=== PATIENT | female | born 1995 | race Caucasian/White ===

== ENCOUNTER 2018-12-18 00:56 | Observation (INO) | payer MEDICAID ==
[~2018-12-18] VITALS: Ht 157.5 cm; Wt 82.6 kg
[2018-12-18] MEDS ORDERED: DEXT 5%/LACTATED RINGERS 1,000 ML IV SCH (01:30)
[2018-12-18] MEDS ORDERED: BUTORPHANOL TARTRATE 2 MG/ML VIAL IV PRN (03:45)
[2018-12-18 03:53] VITALS: BP 104/59
== END 2018-12-18 07:25 | disposition home or self-care (01) ==
LOC: 8 EST LDRP 00:56
PROVIDERS: ADMIT Obstetrics & Gynecology; ATTEND Obstetrics & Gynecology
DX: O62.9 Abnormality of forces of labor, unspecified (principal); Z3A.38 38 weeks gestation of pregnancy
CPT/HCPCS: 76815; 76818; 96374; 99281; G0378; J0595; 96360; 96361; J7121

== ENCOUNTER 2018-12-18 15:33 | Inpatient (IN) | payer MEDICAID ==
[~2018-12-18] VITALS: Ht 157.5 cm; Wt 82.6 kg
[~2018-12-18 15:33] MED LIST: LIDOCAINE HCL 2%/EPINEPHRINE 1:100,000 20 ML VIAL INFIL ONE
[2018-12-18] MEDS ORDERED: DEXT 5%/LR + PITOCIN 20UNITS/L 1,000 ML IV SCH ×2 (15:55→23:06)
[2018-12-18] MEDS ORDERED: LIDOCAINE HCL 1% 20ML VIAL (Pyxis) INJ INFIL SCH (16:00)
[2018-12-18] MEDS ORDERED: BUTORPHANOL TARTRATE 2 MG/ML VIAL IV PRN (16:00)
[2018-12-18] MEDS ORDERED: MISOPROSTOL 100MCG TABLET VG SCH (16:00)
[2018-12-18] MEDS ORDERED: ROPIVACAINE HCL/PF EPIDURAL 200 ML EPI SCH (16:30)
[2018-12-18] MEDS ORDERED: LACTATED RINGERS 1,000 ML IV SCH (16:30)
[2018-12-18 16:38] LABS: CLARITY URINE CLEAR (CLEAR); COLOR URINE YELLOW (YELLOW); KETONES URINE 1+ (NEGATIVE); LEUKOCYTE ESTERASE URINE 1+ (NEGATIVE); NITRITE URINE NEGATIVE (NEGATIVE); OCCULT BLOOD URINE 2+ (NEGATIVE); PROTEIN URINE NEGATIVE (NEGATIVE); SPECIFIC GRAVITY URINE 1.023 (1.005-1.030); UROBILINOGEN URINE 0.2 E.U./dL (0.2-1.0)
[2018-12-18 16:41] LABS: BASOPHILS % 0.3 % (0.0-2.0); HEMATOCRIT. 35.1 % (36.0-48.0); HEMOGLOBIN. 11.9 g/dL (12.0-16.0); LYMPHOCYTES % 12.1 % (20.0-50.0); MEAN CORPUSCULAR HEMOGLOBIN 29.9 pg (28.0-32.0); MEAN CORPUSCULAR VOLUME 88.3 fL (81.0-99.0); MEAN PLATELET VOLUME 8.8 fl (7.4-10.4); MONOCYTES % 4.5 % (2.0-8.0); NEUTROPHILS % 83.1 % (40.0-76.0); PLATELET 187 x1000/uL (130-400); RED BLOOD CELL COUNT 3.98 mill/uL (4.2-5.4); RED CELL DISTRIBUTION WIDTH 14.1 % (11.6-14.6)
[2018-12-18 16:50] LABS: INR 0.9; PARTIAL THROMBOPLASTIN TIME 31.2 sec (23.4-31.0); PROTHROMBIN TIME 9.4 sec (9.6-11.0)
[2018-12-18 16:51] LABS: *AMPHETAMINES SCREEN URINE NEGATIVE (NEGATIVE); *BARBITURATES SCREEN URINE NEGATIVE (NEGATIVE); *BENZODIAZEPINES SCREEN URINE NEGATIVE (NEGATIVE); *COCAINE SCREEN URINE NEGATIVE (NEGATIVE); CANNABINOID URINE SCREEN NEGATIVE (NEGATIVE); METHADONE URINE SCREEN NEGATIVE (NEGATIVE); OPIATES URINE SCREEN NEGATIVE (NEGATIVE)
[2018-12-18 16:52] LABS: PHENCYCLIDINE URINE SCREEN NEGATIVE (NEGATIVE)
[2018-12-18 17:18] LABS: HEPATITIS B SURFACE ANTIGEN NEGATIVE
[2018-12-18] MEDS ORDERED: FENTANYL CITRATE/PF 50MCG/ML 2ML VIAL ONE (19:50)
[2018-12-18] MEDS ORDERED: HEMORRHOIDAL SUPP PR PRN (23:00)
[2018-12-18] MEDS ORDERED: BISACODYL 10MG SUPP PR PRN (23:00)
[2018-12-18] MEDS ORDERED: ACETAMINOPHEN WITH CODEINE 300/30MG TABLET PO PRN (23:00)
[2018-12-18] MEDS ORDERED: RHO(D) IMMUNE GLOBULIN 300 MCG/SYR IM PRN (23:00)
[2018-12-18] MEDS ORDERED: LANOLIN OINT 7GM TUBE TOP PRN (23:00)
[2018-12-18] MEDS ORDERED: DIPHENHYDRAMINE 25MG CAPSULE PO PRN (23:00)
[2018-12-19 00:25] VITALS: BP 116/64
[2018-12-19] MEDS: IBUPROFEN 400MG TABLET PO PRN ×2 (00:56→22:52)
[2018-12-19 01:00] VITALS: BP 118/70
[2018-12-19] MEDS ORDERED: BENZOCAINE/LANOLIN/ALOE VERA SPRAY TOP PRN (04:00)
[2018-12-19] MEDS ORDERED: GLYCERIN/WITCH HAZEL LEAF MEDICATED PAD TOP PRN (04:00)
[2018-12-19 05:10] VITALS: BP 115/69
[2018-12-19] MEDS: MAGNESIUM/ALUMINUM HYDROXIDE/SIMETHICONE 30ML UDC PO SCH ×4 (08:30→21:00)
[2018-12-19] MEDS: PRENATAL VIT/FE FUMARATE/FA TABLET PO SCH (08:30)
[2018-12-19] MEDS: SIMETHICONE 80MG TABLET CHEW PO SCH ×4 (08:30→21:00)
[2018-12-19] MEDS: ACETAMINOPHEN WITH CODEINE 300/30MG TABLET PO PRN ×3 (08:31→22:45)
[2018-12-19] MEDS: FERROUS SULFATE 325MG TABLET PO SCH ×4 (08:31→21:11)
[2018-12-19 11:19] LABS: BASOPHILS % 0.1 % (0.0-2.0); HEMATOCRIT. 33.1 % (36.0-48.0); HEMOGLOBIN. 11.1 g/dL (12.0-16.0); LYMPHOCYTES % 9.6 % (20.0-50.0); MEAN CORPUSCULAR HEMOGLOBIN 29.8 pg (28.0-32.0); MEAN PLATELET VOLUME 9.1 fl (7.4-10.4); MONOCYTES % 4.5 % (2.0-8.0); NEUTROPHILS % 85.8 % (40.0-76.0); PLATELET 158 x1000/uL (130-400); RED BLOOD CELL COUNT 3.72 mill/uL (4.2-5.4)
[2018-12-19 14:47] VITALS: BP 104/64
[2018-12-19 19:50] VITALS: BP 116/64
[2018-12-20 04:00] VITALS: BP 100/58
[2018-12-20] MEDS: MAGNESIUM/ALUMINUM HYDROXIDE/SIMETHICONE 30ML UDC PO SCH (07:30)
[2018-12-20] MEDS: SIMETHICONE 80MG TABLET CHEW PO SCH ×2 (07:38→08:08)
[2018-12-20 08:00] VITALS: BP 101/54
[2018-12-20] MEDS: PRENATAL VIT/FE FUMARATE/FA TABLET PO SCH (08:07)
[2018-12-20] MEDS: FERROUS SULFATE 325MG TABLET PO SCH (08:08)
[2018-12-20] MEDS: IBUPROFEN 400MG TABLET PO PRN (08:08)
== END 2018-12-20 11:35 | disposition home or self-care (01) | DRG 560 ==
LOC: OBSVTOIN 15:33 → 8 EST LDRP 15:33 → 8EST 12-19 00:23
PROVIDERS: ADMIT Obstetrics & Gynecology; ATTEND Obstetrics & Gynecology
PROC: 10E0XZZ Delivery of Products of Conception, External Approach (ICD-10-PCS; principal; 2018-12-18)
PROC: 0HQ9XZZ Repair Perineum Skin, External Approach (ICD-10-PCS; 2018-12-18)
DX: O70.0 First degree perineal laceration during delivery (principal); Z37.0 Single live birth; Z3A.38 38 weeks gestation of pregnancy
CPT/HCPCS: 36415; 80305; 81003; 86592; 86703; 86762; 86850; 86900; 87340; 99281; G0378; J2590; J2795; J3010; J3490; A4315

== ENCOUNTER 2020-08-02 20:10 | Observation (INO) | payer MEDICAID ==
[~2020-08-02] VITALS: Ht 157.5 cm; Wt 77.1 kg
[2020-08-02] MEDS ORDERED: LACTATED RINGERS 1,000 ML IV SCH (21:15)
[2020-08-02] MEDS ORDERED: PREN1TAB78 PO (22:56)
== END 2020-08-02 23:22 | disposition home or self-care (01) ==
LOC: 8 EST LDRP 20:10
PROVIDERS: ADMIT Obstetrics & Gynecology; ATTEND Obstetrics & Gynecology
DX: O62.9 Abnormality of forces of labor, unspecified (principal); Z3A.35 35 weeks gestation of pregnancy
CPT/HCPCS: 59025; 76805; 76818; 96360; 96361; G0378; J7120

== ENCOUNTER 2020-08-12 16:18 | Observation (INO) | payer MEDICAID ==
[~2020-08-12 16:18] MED LIST changes: -LIDOCAINE HCL 2%/EPINEPHRINE 1:100,000 20 ML VIAL INFIL ONE; +PREN1TAB78 PO
== END 2020-08-12 17:25 | disposition home or self-care (01) ==
LOC: 8 EST LDRP 16:18
PROVIDERS: ADMIT Obstetrics & Gynecology; ATTEND Obstetrics & Gynecology
DX: O62.9 Abnormality of forces of labor, unspecified (principal); Z3A.37 37 weeks gestation of pregnancy
CPT/HCPCS: 59025; G0378; 99281

== ENCOUNTER 2021-12-21 21:02 | Emergency (ER) | payer MEDICAID ==
[~2021-12-21] VITALS: Ht 157.5 cm; Wt 82.0 kg
[~2021-12-21 21:02] MED LIST changes: +FERR325T23 PO; +IBUP-2028 PO
[2021-12-21 21:36] VITALS: BP 112/73
== END 2021-12-22 06:35 | disposition home or self-care (01) ==
LOC: ER 21:02
DX: O26.893 Other specified pregnancy related conditions, third trimester (principal); R05.9 Cough, unspecified; Z3A.35 35 weeks gestation of pregnancy; J45.909 Unspecified asthma, uncomplicated; Z87.440 Personal history of urinary (tract) infections
CPT/HCPCS: 99281

== ENCOUNTER 2021-12-29 21:49 | Observation (INO) | payer MEDICAID ==
[~2021-12-29] VITALS: Ht 160 cm; Wt 81.6 kg
== END 2021-12-29 23:50 | disposition home or self-care (01) ==
LOC: 8 EST LDRP 21:49
PROVIDERS: ADMIT Obstetrics & Gynecology; ATTEND Obstetrics & Gynecology
DX: O62.9 Abnormality of forces of labor, unspecified (principal); O41.03X0 Oligohydramnios, third trimester, not applicable or unspecified; Z3A.36 36 weeks gestation of pregnancy
CPT/HCPCS: 59025; 76815; 76818; G0378

== ENCOUNTER 2022-01-02 23:07 | Observation (INO) | payer MEDICAID ==
[~2022-01-02] VITALS: Ht 160 cm; Wt 82.1 kg
[~2022-01-02 23:07] MED LIST changes: -IBUP-2028 PO
[2022-01-03] MEDS ORDERED: LACTATED RINGERS 1,000 ML IV SCH (02:00)
[2022-01-03] MEDS ORDERED: ACETAMINOPHEN 500MG TABLET PO NR (02:30)
[2022-01-04] MEDS ORDERED: PREN1TAB22 PO (18:38)
== END 2022-01-03 08:25 | disposition home or self-care (01) ==
LOC: 8 EST LDRP 23:07
PROVIDERS: ADMIT Obstetrics & Gynecology; ATTEND Obstetrics & Gynecology
DX: O26.893 Other specified pregnancy related conditions, third trimester (principal); R10.30 Lower abdominal pain, unspecified; O62.9 Abnormality of forces of labor, unspecified; Z3A.36 36 weeks gestation of pregnancy
CPT/HCPCS: 59025; 76805; 76818; 96360; 96361; G0378; J7120

== ENCOUNTER 2022-01-04 18:04 | Observation (INO) | payer MEDICAID ==
[~2022-01-04] VITALS: Ht 160 cm; Wt 81.6 kg
[2022-01-04] MEDS ORDERED: PREN1TAB22 PO (18:38)
[2022-01-04] MEDS ORDERED: LACTATED RINGERS 1,000 ML IV SCH (19:15)
[2022-01-04 20:28] LABS: CLARITY URINE CLEAR (CLEAR); COLOR URINE YELLOW (YELLOW); KETONES URINE NEGATIVE (NEGATIVE); LEUKOCYTE ESTERASE URINE NEGATIVE (NEGATIVE); NITRITE URINE NEGATIVE (NEGATIVE); OCCULT BLOOD URINE NEGATIVE (NEGATIVE); PH URINE 6.5 (4.5-8.0); PROTEIN URINE NEGATIVE (NEGATIVE); UROBILINOGEN URINE 0.2 E.U./dL (0.2-1.0)
== END 2022-01-04 21:30 | disposition home or self-care (01) ==
LOC: 8 EST LDRP 18:04
PROVIDERS: ADMIT Obstetrics & Gynecology; ATTEND Obstetrics & Gynecology
DX: O26.893 Other specified pregnancy related conditions, third trimester (principal); N89.8 Other specified noninflammatory disorders of vagina; R10.30 Lower abdominal pain, unspecified; O62.9 Abnormality of forces of labor, unspecified; O99.891 Other specified diseases and conditions complicating pregnancy; M54.9 Dorsalgia, unspecified; Z3A.37 37 weeks gestation of pregnancy
CPT/HCPCS: 59025; 76815; 76818; 81003; G0378